=== PATIENT | female | born 1940 | race Caucasian/White ===

== ENCOUNTER 2020-12-17 13:18 | Emergency (ER) | payer MEDICARE ==
[2020-12-17] MEDS ORDERED: Cyclobenzaprine 10 MG TAB ONE (13:38)
== END 2020-12-17 13:45 | disposition home or self-care (01) ==
LOC: BURERS 13:18
DX: M62.838 Other muscle spasm (principal); I48.91 Unspecified atrial fibrillation; E78.2 Mixed hyperlipidemia; I10 Essential (primary) hypertension; Z85.3 Personal history of malignant neoplasm of breast; Z79.899 Other long term (current) drug therapy
CPT/HCPCS: 99283

== ENCOUNTER 2020-12-19 10:19 | Emergency (ER) | payer MEDICARE ==
[2020-12-19] MEDS ORDERED: Diazepam 10 MG/2 ML SYRINGE ONE (10:56)
== END 2020-12-19 11:39 | disposition home or self-care (01) ==
LOC: BURERS 10:19
DX: M62.838 Other muscle spasm (principal); I48.91 Unspecified atrial fibrillation; I10 Essential (primary) hypertension; E78.5 Hyperlipidemia, unspecified; Z85.3 Personal history of malignant neoplasm of breast; Z86.79 Personal history of other diseases of the circulatory system
CPT/HCPCS: 96374; J3360

== ENCOUNTER 2021-05-17 23:23 | Emergency (ER) | payer MEDICARE ==
[2021-05-17 23:53] LABS: ALT (SGPT) 54 U/L (8-55); AST (SGOT) 33 U/L (5-34); Albumin 3.9 g/dL (3.4-4.8); Alkaline Phosphatase 170 U/L (40-110); Anion Gap 15 mmol/L (10-20); BUN (Urea Nitrogen) 26 mg/dL (9.8-20.1); Bilirubin, Total 0.7 mg/dL (0.2-1.2); Calc. Creatinine Clearance 0 mL/min (70-130); Calcium 8.7 mg/dL (7.8-10.44); Carbon Dioxide 23 mmol/L (23-31); Chloride 100 mmol/L (98-107); Globulin 3.5 g/dL (2.4-3.5); Glucose 118 mg/dL (83-110); Potassium 3.2 mmol/L (3.5-5.1); Protein, Total 7.4 g/dL (5.8-8.1); Sodium 135 mmol/L (136-145)
[2021-05-17 23:58] LABS: INR-International Normal Ratio 1.7; Prothrombin Time 20.4 sec (12.0-14.7)
[2021-05-17 23:59] LABS: PTT 47.2 sec (22.9-36.1)
[2021-05-18] LABS: Hemoglobin 11.5 g/dL (12.0-16.0); Mean Corpuscular Hemoglobin 28.9 pg (27.0-31.0); Mean Corpuscular Volume 93.3 fL (78.0-98.0); Mean Platelet Volume 8.4 fL (7.4-10.4); Platelet Count 140 thou/uL (130-400); RBC Distribution Width 13.3 % (11.5-14.5); Red Blood Cell (RBC) Count 3.96 mill/uL (4.20-5.40); White Blood Cell (WBC) Count 8.1 thou/uL (4.8-10.8)
[2021-05-18] MEDS ORDERED: Morphine 4 MG/ML VIAL ONE (00:09)
[2021-05-18] MEDS ORDERED: Ondansetron PF 4 MG/2 ML Vial ONE (00:09)
[2021-05-18] MEDS ORDERED: Cefepime 2 GM VIAL ONE (00:10)
[2021-05-18] MEDS ORDERED: Sodium Chloride 0.9% 100 ML ONE (00:12)
[2021-05-18 00:13] LABS: CKMB 1.5 ng/mL (0-6.6)
[2021-05-18 01:00] LABS: Band 1 % (5-11); Eosinophils 1 % (0-10); Lymphocytes 11 % (21-51); MDiff Complete? YES; Monocytes 5 % (0-10); Neutrophil 82 % (42-75)
[2021-05-18 20:07] LABS: SARS-CoV-2 PCR by NAA Not Detected (NotDetected)
== END 2021-05-18 00:44 | disposition short-term general hospital (02) ==
LOC: BURERS 23:23
DX: M79.89 Other specified soft tissue disorders (principal); I48.91 Unspecified atrial fibrillation; I10 Essential (primary) hypertension; E78.2 Mixed hyperlipidemia; Z20.822 Contact with and (suspected) exposure to COVID-19; Z85.3 Personal history of malignant neoplasm of breast
CPT/HCPCS: 80053; 82553; 83605; 84484; 85025; 85610; 85730; 87040; 93005; U0003; U0005; 36415; 96374; 96375; J0692; J2270; J2405; J3490

== ENCOUNTER 2023-10-22 15:01 | Emergency (ER) | payer MEDICARE ==
[2023-10-22] MEDS ORDERED: Furosemide 40 MG (4 mL) VIAL ONE (15:37)
[2023-10-22 15:55] LABS: Anion Gap 19 mmol/L (10-20); BUN (Urea Nitrogen) 20 mg/dL (9.8-20.1); Calc. Creatinine Clearance 0 mL/min (70-130); Calcium 9.5 mg/dL (7.8-10.44); Carbon Dioxide 24 mmol/L (23-31); Chloride 94 mmol/L (98-107); Estimated GFR 66; Glucose 122 mg/dL (83-110); Magnesium 1.8 mg/dL (1.6-2.6); Potassium 3.7 mmol/L (3.5-5.1); Sodium 133 mmol/L (136-145)
== END 2023-10-22 18:28 | disposition home or self-care (01) ==
LOC: BURERS 15:01
DX: I48.20 Chronic atrial fibrillation, unspecified (principal); E87.70 Fluid overload, unspecified; I35.0 Nonrheumatic aortic (valve) stenosis; E78.00 Pure hypercholesterolemia, unspecified; I10 Essential (primary) hypertension; Z79.01 Long term (current) use of anticoagulants; Z79.899 Other long term (current) drug therapy
CPT/HCPCS: 71045; 80048; 83735; 83880; J1940; 96374

== ENCOUNTER 2023-12-13 07:14 | Emergency (ER) | payer MEDICARE ==
[2023-12-13] MEDS ORDERED: Dexamethasone 4 MG TAB ONE (08:48)
== END 2023-12-13 08:56 | disposition home or self-care (01) ==
LOC: BURERS 07:14
DX: G50.0 Trigeminal neuralgia (principal); I48.91 Unspecified atrial fibrillation; I10 Essential (primary) hypertension
CPT/HCPCS: 99283; J8540